=== PATIENT | male | born 1975 | race Caucasian/White ===

== ENCOUNTER 2020-05-03 00:06 | Emergency (ER) | payer SELFPAY ==
[~2020-05-03] VITALS: Ht 185.4 cm; Wt 172.7 kg
[2020-05-03 01:26] VITALS: BP 174/100
[2020-05-03] MEDS ORDERED: HYDROcodone/APAP 10/325 1 TAB TABLET PO ONE (02:00)
[2020-05-03] MEDS ORDERED: HYDR-3164 PO (02:11)
--- NOTE | 2020-05-03 02:12 | PHYS DOC ---
Past Medical History Past Medical History: DVT, Hypertension Additional Past Medical Histor: PE Past Surgical History: Other Additional Past Surgical Histo: R. MCL, R. BICEP, R. ANKLE Smoking Status: Current Every Day Smoker Alcohol Use: Rarely General Adult EDM: Chief Complaint: LOWER EXTREMITY SWELLING HPI: HPI: Patient is a 44 year old male with a past medical history of DVTs and PEs presents with a chief complaint of right inner leg pain. Patient states yesterday started to have some swelling and pain right inner thigh. Patient sta jessica since onset pain and swelling have increased. Patient is concerned that he might have a DVT. Patient denies any chest pain or shortness of breath. Review of Systems: Review of Systems: Constitutional: Denies fever or chills. [] Eyes: Denies change in visual acuity. [] HENT: Denies nasal congestion or sore throat. [] Respiratory: Denies cough or shortness of breath. [] Cardiovascular: Denies chest pain or edema. [] GI: Denies abdominal pain, nausea, vomiting, bloody stools or diarrhea. [] : Denies dysuria. [] Musculoskeletal: Denies back pain or joint pain. [Positive extremity pain] Integument: Denies rash. [] Neurologic: Denies headache, focal weakness or sensory changes. [] Endocrine: Denies polyuria or polydipsia. [] Lymphatic: Denies swollen glands. [] Psychiatric: Denies depression or anxiety. [] Heart Score: Risk Factors: Risk Factors: DM, Current or recent (<one month) smoker, HTN, HLP, family history of CAD, obesity. Risk Scores: Score 0 - 3: 2.5% MACE over next 6 weeks - Discharge Home Score 4 - 6: 20.3% MACE over next 6 weeks - Admit for Clinical Observation Score 7 - 10: 72.7% MACE over next 6 weeks - Early Invasive Strategies Current Medications: Current Medications Medications (Trade) Dose Ordered Sig/Yovani Start Time Stop Time Status Last Admin Dose Admin Acetaminophen/ Hydrocodone Bitart (Lortab 10/325) 1 tab 1X ONCE 05/03/20 02:00 05/03/20 02:01 DC 05/03/20 01:42 1 TAB Allergies: Allergies: Allergies Coded Allergies Type Severity Reaction Last Updated Verified aspirin Allergy Intermediate 05/03/20 Yes prochlorperazine Allergy Intermediate 05/03/20 Yes Physical Exam: PE: Constitutional: Well developed, well nourished, no acute distress, non-toxic appearance. [] HENT: Normocephalic, atraumatic, bilateral external ears normal, oropharynx moist, no oral exudates, nose normal. [] Eyes: PERRLA, EOMI, conjunctiva normal, no discharge. [] Neck: Normal range of motion, no tenderness, supple, no stridor. [] Cardiovascular:Heart rate regular rhythm, no murmur [] Lungs & Thorax: Bilateral breath sounds clear to auscultation [] Abdomen: Bowel sounds normal, soft, no tenderness, no masses, no pulsatile masses. [] Skin: Warm, dry, no erythema, no rash. [] Back: No tenderness, no CVA tenderness. [] Extremities: No tenderness, no cyanosis, no clubbing, ROM intact, no edema. [] Neurologic: Alert and oriented X 3, normal motor function, normal sensory fun ction, no focal deficits noted. [] Psychologic: Affect normal, judgement normal, mood normal. [] Current Patient Data: Vital Signs: Vital Signs Date Time Temp Pulse Resp B/P (MAP) Pulse Ox O2 Delivery O2 Flow Rate FiO2 05/03/20 01:42 20 05/03/20 01:26 98.1 98 174/100 (124) 98 Room Air 98.1 EKG: EKG: [] Radiology/Procedures: Radiology/Procedures: [] Impression: IMPRESSION: No evidence of right lower extremity DVT. Distal femoral vein not visualized. Occlusive superficial venous thrombus in the greater saphenous vein at the level of the thigh. Course & Med Decision Making: Course & Med Decision Making Pertinent Labs and Imaging studies reviewed. (See chart for details) [] Patient was evaluated for chief complaint. Work-up consisted of radiologic imaging. Ultrasound performed no DVT. Patient was discharged home with prescription Percocet and Keflex Dragon Disclaimer: Dragon Disclaimer: This electronic medical record was generated, in whole or in part, using a voice recognition dictation system. Departure Departure Impression: Primary Impression: Superficial thrombophlebitis Disposition: 01 DC HOME SELF CARE/HOMELESS Condition: STABLE Referrals: NO PCP (PCP) Patient Instructions: Venous Thromboembolism Scripts Oxycodone HCl/Acetaminophen (Percocet 5-325 mg Tablet) 1 Each Tablet 1 TAB PO QIDPRN PRN for PAIN MDD 4 Tablet(s) for 5 Days, #20 TAB 0 Refills Prov: CHRISTOPHER TINSLEY DO 05/03/20 Cephalexin (KEFLEX) 500 Mg Capsule 500 MG PO QID, #40 CAP Prov: CHRISTOPHER TINSLEY DO 05/03/20 Hydrocodone/Apap 5-325 (NORCO 5-325 TABLET) 1 Each Tablet 1 TAB PO PRN Q6HRS PRN for PAIN, #20 TAB 0 Refills Prov: CHRISTOPHER TINSLEY DO 05/03/20 CHRISTOPHER TINSLEY DO May 03, 2020 02:11
[2020-05-03] MEDS ORDERED: CEPH-264 PO (02:16)
[2020-05-03] MEDS ORDERED: OXYC-325 PO (02:16)
--- NOTE | 2020-05-03 02:24 | RAD ---
EXAMINATION: VENOUS LOWER EXTREMITY RIGHT (LOWER EXTREMITY VENOUS ULTRASOUND) CLINICAL HISTORY: Right LEG SWELLING, HX OF DVT TECHNIQUE: Sonographic grayscale images obtained of the right lower extremity deep venous system with color flow Doppler, compression, and augmentation techniques as indicated. Images obtained and stored in a permanent archive. COMPARISON: None FINDINGS: No evidence of absent flow or incompressibility within the common femoral vein, proximal to mid femoral vein, or popliteal vein. Distal femoral vein not visualized secondary to limited beam penetration related to patient's body habitus. Visualized calf veins appear patent on limited evaluation. Echogenic occlusive thrombus in the greater saphenous vein extending from just distal to the junction with the common femoral vein to the level of the distal thigh. IMPRESSION: No evidence of right lower extremity DVT. Distal femoral vein not visualized. Occlusive superficial venous thrombus in the greater saphenous vein at the level of the thigh. Electronically signed by: Tevin Hoyt DO (05/03/2020 2:21 AM) YNES
== END 2020-05-03 02:21 | disposition home or self-care (01) ==
LOC: ER 00:06
DX: I80.9 Phlebitis and thrombophlebitis of unspecified site (principal); M79.661 Pain in right lower leg; R60.0 Localized edema; I10 Essential (primary) hypertension; F17.200 Nicotine dependence, unspecified, uncomplicated; Z86.718 Personal history of other venous thrombosis and embolism; Z98.890 Other specified postprocedural states
CPT/HCPCS: 93971; 99284

== ENCOUNTER 2020-08-31 08:48 | Emergency (ER) | payer SELFPAY ==
[~2020-08-31] VITALS: Ht 185.4 cm; Wt 195.0 kg
[~2020-08-31 08:48] MED LIST: CEPH-264 PO; HYDR-3164 PO; OXYC-325 PO; RIVA10TA PO
[2020-08-31 09:45] LABS: BASO # 0.1 x10^3/uL (0.0-0.2); BASO % 1 % (0-3); EOS # 0.6 x10^3/uL (0.0-0.7); EOS % 7 % (0-3); HEMATOCRIT 43.6 % (39.0-53.0); HEMOGLOBIN 14.7 g/dL (13.0-17.5); LYMPH # 1.9 x10^3/uL (1.0-4.8); LYMPH % 20 % (24-48); MEAN CORPUSCULAR HEMOGLOBIN 29 pg (25-35); MEAN CORPUSCULAR HGB CONC 34 g/dL (31-37); MEAN CORPUSCULAR VOLUME 87 fL (79-100); MONO # 1.1 x10^3/uL (0.0-1.1); MONO % 12 % (0-9); NEUT # 5.7 x10^3/uL (1.8-7.7); NEUT % 60 % (31-73); PLATELET COUNT 194 x10^3/uL (140-400); RED BLOOD COUNT 5.02 x10^6/uL (4.30-5.70); WHITE BLOOD COUNT 9.4 x10^3/uL (4.0-11.0)
[2020-08-31 09:59] LABS: CALCIUM 9.1 mg/dL (8.5-10.1); CREATININE 0.8 mg/dL (0.7-1.3); GFR 104.1; POTASSIUM 4.4 mmol/L (3.5-5.1)
--- NOTE | 2020-08-31 10:00 | EKG ---
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
[2020-08-31 10:04] LABS: ALBUMIN/GLOBULIN RATIO 0.7 (1.0-1.7); MAGNESIUM 1.9 mg/dL (1.8-2.4); TOTAL BILIRUBIN 0.3 mg/dL (0.2-1.0); TOTAL PROTEIN 7.1 g/dL (6.4-8.2)
[2020-08-31] MEDS ORDERED: MORPHINE SULFATE 4 MG/ML VIAL. IV ONE ×3 (10:15→11:45)
--- NOTE | 2020-08-31 10:55 | RAD ---
Exam: US DPLX VENOUS EXTREMITY LOWER LT Indication: Reason: LEFT LEG SWELLING AND PAIN FOR 2 DAYS / Spl. Instructions: / History: Technique: Color-flow and pulsed wave duplex ultrasound with compression of venous structures of the left lower extremity. Comparison: None Available. Findings: Duplex ultrasound with compression of the deep venous structures of the left lower extremit y from the common femoral vein through the popliteal vein is negative for DVT. The posterior tibial a nd peroneal veins are segmentally visualized and patent where seen. Normal venous waveforms and augme ntation are noted throughout. Impression: No evidence for DVT in the left lower extremity. Electronically signed by: Reagan Delacruz MD (08/31/2020 10:53 AM) [id number]
[2020-08-31] MEDS ORDERED: ONDANSETRON PF 4 MG/2 ML VIAL. IVP ONE ×2 (11:15→11:30)
[2020-08-31] MEDS ORDERED: IOHEXOL 350 MG/ML 100 ML VIAL. IV ONE (11:15)
--- NOTE | 2020-08-31 12:07 | EKG ---
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
--- NOTE | 2020-08-31 12:20 | RAD ---
CTA CHEST INDICATION: chest pain, soa, hx of PE . Comparison: CTA 05/07/2020. TECHNIQUE: Following the uneventful administration of intravenous contrast, 100 cc Omnipaque 350, axi al CT sections were obtained through the lungs and upper abdomen. Multiplanar reconstructions and MIP images were obtained. PQRS compliance statement: One or more of the following individualized dose reduction techniques were utilized for this examinat ion: 1. Automated exposure control 2. Adjustment of the mA and/or kV according to patient size 3. Use of iterative reconstruction technique FINDINGS: Pulmonary arteries: No large central pulmonary thromboembolus. Evaluation of segmental and subsegment al branches is nondiagnostic due to suboptimal contrast opacification. Lungs and Airways: No pulmonary mass or consolidation. Right lower lobe calcified granulomas. No abno rmality of the central airways. Pleura: The pleural spaces are normal. Heart and Mediastinum: The visualized thyroid is normal in size and attenuation. No axillary or supra clavicular lymphadenopathy. No mediastinal, hilar or retrocrural lymphadenopathy. Calcified mediastin al and right hilar lymph nodes consistent with remote granulomatous disease. The heart and pericardiu m are within normal limits. Normal caliber thoracic aorta. Abdomen: Limited images through the upper abdomen show no abnormality of the visualized organs. Bones and Soft Tissues: Degenerative changes of the spine with multilevel bridging osteophytes. IMPRESSION: 1. No large central pulmonary thromboembolus. Evaluation of segmental and subsegmental branches is no ndiagnostic due to suboptimal contrast opacification. 2. No pulmonary mass or consolidation. Electronically signed by: Reagan Delacruz MD (08/31/2020 12:18 PM) [id number]
[2020-08-31 12:25] VITALS: BP 140/63
--- NOTE | 2020-08-31 12:53 | PHYS DOC ---
Past Medical History Past Medical History: DVT, Hypertension Additional Past Medical Histor: PE Past Surgical History: Other Additional Past Surgical Histo: R. MCL, R. BICEP, R. ANKLE Smoking Status: Current Every Day Smoker Alcohol Use: Rarely General Adult EDM: Chief Complaint: SHORTNESS OF BREATH HPI: HPI: Patient is a 45 year old male who present to ER due to left leg pain, chest pain associate with trouble breathing for the last few days. 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 Patient was on Xarelto, but no longer on blood thinner. Patient denies any history of diabetic, no history of high blood pressure, no history of coronary disease. Patient denies any recent travel or operation, he denies any recent COVID-19 infection or exposure. Review of Systems: Review of Systems: Constitutional: Denies fever or chills. [] Eyes: Denies change in visual acuity. [] HENT: Denies nasal congestion or sore throat. [] Respiratory: Denies cough, positive for shortness of breath. [] Cardiovascular: Positive for chest pain, GI: Denies abdominal pain, nausea, vomiting, bloody stools or diarrhea. [] : Denies dysuria. [] Musculoskeletal: Positive for left leg pain] Integument: Denies rash. [] Neurologic: Denies headache, focal weakness or sensory changes. [] Endocrine: Denies polyuria or polydipsia. [] Lymphatic: Denies swollen glands. [] Psychiatric: Denies depression or anxiety. [] Heart Score: C/O Chest Pain: Yes HEART Score for Chest Pain: HEART Score for Chest Pain Response (Comments) Value History Moderately Suspicious 1 ECG Normal 0 Age >45 - < 65 1 Risk Factors 1 or 2 Risk Factors 1 Troponin < Normal Limit 0 Total 3 Risk Factors: Risk Factors: DM, Current or recent (<one month) smoker, HTN, HLP, family history of CAD, obesity. Risk Scores: Score 0 - 3: 2.5% MACE over next 6 weeks - Discharge Home Score 4 - 6: 20.3% MACE over next 6 weeks - Admit for Clinical Observation Score 7 - 10: 72.7% MACE over next 6 weeks - Early Invasive Strategies Current Medications: Current Medications Medications (Trade) Dose Ordered Sig/Yovani Start Time Stop Time Status Last Admin Dose Admin Iohexol (Omnipaque 350 Mg/ml) 100 ml 1X ONCE 08/31/20 11:15 08/31/20 11:16 DC 08/31/20 12:00 100 ML Morphine Sulfate (Morphine Sulfate) 4 mg 1X ONCE 08/31/20 11:45 08/31/20 11:46 DC 08/31/20 11:46 4 MG Ondansetron HCl (Zofran) 8 mg 1X ONCE 08/31/20 11:30 08/31/20 11:31 DC 08/31/20 11:46 8 MG Allergies: Allergies: Allergies Coded Allergies Type Severity Reaction Last Updated Verified prochlorperazine Allergy Intermediate 05/03/20 Yes aspirin Adverse Reaction Intermediate Palpitations 05/05/20 Yes sulfamethoxazole Adverse Reaction Unknown Nausea and Vomiting 05/05/20 Yes trimethoprim Adverse Reaction Unknown Nausea and Vomiting 05/05/20 Yes Physical Exam: PE: Constitutional: Well developed, well nourished, no acute distress, non-toxic appearance. Obese HENT: Normocephalic, atraumatic, bilateral external ears normal, oropharynx moist, no oral exudates, nose normal. [] Eyes: PERRLA, EOMI, conjunctiva normal, no discharge. [] Neck: Normal range of motion, no tenderness, supple, no stridor. [] Cardiovascular:Heart rate regular rhythm, no murmur [] Lungs & Thorax: Bilateral breath sounds clear to auscultation [] Abdomen: Bowel sounds normal, soft, no tenderness, no masses, no pulsatile mass es. [] Skin: Warm, dry, no erythema, no rash. [] Back: No tenderness, no CVA tenderness. [] Extremities: Left calf is tender to palpation, there is no obvious swelling, no redness, no evidence of infection. Neurologic: Alert and oriented X 3, normal motor function, normal sensory function, no focal deficits noted. [] Psychologic: Affect normal, judgement normal, mood normal. [] Current Patient Data: Labs: Laboratory Tests Test 08/31/20 09:30 White Blood Count 9.4 x10^3/uL (4.0-11.0) Red Blood Count 5.02 x10^6/uL (4.30-5.70) Hemoglobin 14.7 g/dL (13.0-17.5) Hematocrit 43.6 % (39.0-53.0) Mean Corpuscular Volume 87 fL (79-100) Mean Corpuscular Hemoglobin 29 pg (25-35) Mean Corpuscular Hemoglobin Concent 34 g/dL (31-37) Red Cell Distribution Width 15.0 % (11.5-14.5) H Platelet Count 194 x10^3/uL (140-400) Neutrophils (%) (Auto) 60 % (31-73) Lymphocytes (%) (Auto) 20 % (24-48) L Monocytes (%) (Auto) 12 % (0-9) H Eosinophils (%) (Auto) 7 % (0-3) H Basophils (%) (Auto) 1 % (0-3) Neutrophils # (Auto) 5.7 x10^3/uL (1.8-7.7) Lymphocytes # (Auto) 1.9 x10^3/uL (1.0-4.8) Monocytes # (Auto) 1.1 x10^3/uL (0.0-1.1) Eosinophils # (Auto) 0.6 x10^3/uL (0.0-0.7) Basophils # (Auto) 0.1 x10^3/uL (0.0-0.2) Sodium Level 138 mmol/L (136-145) Potassium Level 4.4 mmol/L (3.5-5.1) Chloride Level 105 mmol/L (98-107) Carbon Dioxide Level 27 mmol/L (21-32) Anion Gap 6 (6-14) Blood Urea Nitrogen 10 mg/dL (8-26) Creatinine 0.8 mg/dL (0.7-1.3) Estimated GFR (Cockcroft-Gault) 104.1 BUN/Creatinine Ratio 13 (6-20) Glucose Level 111 mg/dL (70-99) H Calcium Level 9.1 mg/dL (8.5-10.1) Magnesium Level 1.9 mg/dL (1.8-2.4) Total Bilirubin 0.3 mg/dL (0.2-1.0) Aspartate Amino Transferase (AST) 18 U/L (15-37) Alanine Aminotransferase (ALT) 35 U/L (16-63) Alkaline Phosphatase 64 U/L (46-116) Troponin I Quantitative < 0.017 ng/mL (0.000-0.055) VO-Kie-S-Type Natriuretic Peptide 192 pg/mL (0-124) H Total Protein 7.1 g/dL (6.4-8.2) Albumin 3.0 g/dL (3.4-5.0) L Albumin/Globulin Ratio 0.7 (1.0-1.7) L Lipase 115 U/L (73-393) Laboratory Tests 08/31/20 09:30 Laboratory Tests 08/31/20 09:30 Vital Signs: Vital Signs Date Time Temp Pulse Resp B/P (MAP) Pulse Ox O2 Delivery O2 Flow Rate FiO2 08/31/20 09:30 98.1 75 18 99 Room Air 98.1 EKG: EKG: EKG was done at 11:00, heart rate of 67 beats per minutes, normal sinus rhythm, no ST segment elevation. Normal axis. Radiology/Procedures: Radiology/Procedures: [[address] [address] IMAGING REPORT Signed PATIENT: CYNTHIA LYONS ACCOUNT: [id number] : 1975 LOCATION: ER AGE: 45 SEX: M EXAM STATUS: REG ER ORD. PHYSICIAN: MAYELA RUFF DO REASON: LEFT LEG SWELLING AND PAIN FOR 2 DAYS PROCEDURE: VENOUS LOWER EXTREMITY LEFT Exam: US DPLX VENOUS EXTREMITY LOWER LT Indication: Reason: LEFT LEG SWELLING AND PAIN FOR 2 DAYS / Spl. Instructions: / History: Technique: Color-flow and pulsed wave duplex ultrasound with compression of venous structures of the left lower extremity. Comparison: None Available. Findings: Duplex ultrasound with compression of the deep venous structures of the left lower extremity from the common femoral vein through the popliteal vein is negative for DVT. The posterior tibial and peroneal veins are segmentally visualized and patent where seen. Normal venous waveforms and augmentation are noted throughout. Impression: No evidence for DVT in the left lower extremity. Electronically signed by: Pablo Brooke MD (08/31/2020 10:53 AM) [id number] DICTATED and SIGNED BY: PABLO BROOKE MD DATE: 08/31/20 [id number] [address] [address] IMAGING REPORT Signed PATIENT: CYNTHIA LYONS ACCOUNT: [id number] : 1975 LOCATION: ER AGE: 45 SEX: M EXAM STATUS: REG ER ORD. PHYSICIAN: MAYELA RUFF DO REASON: chest pain, soa, hx of PE PROCEDURE: CT ANGIOGRAPHY CHEST CTA CHEST INDICATION: chest pain, soa, hx of PE . Comparison: CTA 05/07/2020. TECHNIQUE: Following the uneventful administration of intravenous contrast, 100 cc Omnipaque 350, axial CT sections were obtained through the lungs and upper abdomen. Multiplanar reconstructions and MIP images were obtained. PQRS compliance statement: One or more of the following individualized dose reduction techniques were utilized for this examination: 1. Automated exposure control 2. Adjustment of the mA and/or kV according to patient size 3. Use of iterative reconstruction technique FINDINGS: Pulmonary arteries: No large central pulmonary thromboembolus. Evaluation of segmental and subsegmental branches is nondiagnostic due to suboptimal contrast opacification. Lungs and Airways: No pulmonary mass or consolidation. Right lower lobe calcified granulomas. No abnormality of the central airways. Pleura: The pleural spaces are normal. Heart and Mediastinum: The visualized thyroid is normal in size and attenuation. No axillary or supraclavicular lymphadenopathy. No mediastinal, hilar or retrocrural lymphadenopathy. Calcified mediastinal and right hilar lymph nodes consistent with remote granulomatous disease. The heart and pericardium are within normal limits. Normal caliber thoracic aorta. Abdomen: Limited images through the upper abdomen show no abnormality of the visualized organs. Bones and Soft Tissues: Degenerative changes of the spine with multilevel bridging osteophytes. IMPRESSION: 1. No large central pulmonary thromboembolus. Evaluation of segmental and subsegmental branches is nondiagnostic due to suboptimal contrast opacification. 2. No pulmonary mass or consolidation. Electronically signed by: Pablo Brooke MD (08/31/2020 12:18 PM) [id number] DICTATED and SIGNED BY: PABLO BROOKE MD DATE: 08/31/20 [id number] Course & Med Decision Making: Course & Med Decision Making Pertinent Labs and Imaging studies reviewed. (See chart for details) Patient is a 45-year-old male who presented to ER due to left leg pain, chest pain and trouble breathing for several days. 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 Doppler today did not show evidence of DVT, CTA chest did not show evidence of blood clot disorder or infection. EKG came back normal, his lab work did not show any elevated troponin. Due to his risk factor patient would recommend to be admitted to hospital for further evaluation and treatment, however patient declined admission, he signed out against medical advice. Arthur Disclaimer: Arthur Disclaimer: This electronic medical record was generated, in whole or in part, using a voice recognition dictation system. Departure Departure Impression: Primary Impression: Chest pain Additional Impression: Dyspnea Disposition: 07 AMA/ELOPED/LWBS Condition: STABLE Referrals: NO PCP (PCP) Patient Instructions: Discharge Against Medical Advice MAYELA RUFF DO Aug 31, 2020 12:53
[2020-09-01] MEDS ORDERED: ACET325T9 PO (05:25)
[2020-09-01] MEDS ORDERED: IBUP-1007 PO (05:25)
[2020-09-01] MEDS ORDERED: ASPI-424 PO (05:25)
== END 2020-08-31 13:03 | disposition left against medical advice (07) ==
LOC: ER 08:48
DX: R07.89 Other chest pain (principal); R06.00 Dyspnea, unspecified; M79.605 Pain in left leg; I10 Essential (primary) hypertension; F17.200 Nicotine dependence, unspecified, uncomplicated; Z98.890 Other specified postprocedural states; Z86.718 Personal history of other venous thrombosis and embolism; Z88.2 Allergy status to sulfonamides; Z88.8 Allergy status to other drugs, medicaments and biological substances
CPT/HCPCS: 36415; 71275; 80053; 83690; 83735; 83880; 84484; 85025; 93005; 93971; 96374; 96375; 96376; 99285; J2270; J2405; Q9967

== ENCOUNTER 2021-08-23 20:22 | Emergency (ER) | payer SELFPAY ==
[~2021-08-23] VITALS: Ht 185.4 cm; Wt 200.3 kg
[~2021-08-23 20:22] MED LIST changes: +ACET325T9 PO; +ASPI-424 PO; +IBUP-1007 PO; +OXYC1TAB22 PO
[2021-08-23 20:31] VITALS: BP 180/118
[2021-08-23] MEDS ORDERED: DIPHTH,PERTUSS(ACELL),TET TOX 0.5 ML DISP.SYRIN. VAX IM ONE (21:00)
[2021-08-23] MEDS ORDERED: AMOXICILLIN/K CLAV 875/125MG TABLET. PO ONE (21:15)
[2021-08-23] MEDS ORDERED: AMOX875T PO (21:17)
[2021-08-23] MEDS ORDERED: TRAM50TA PO (21:17)
--- NOTE | 2021-08-23 21:18 | PHYS DOC ---
Past Medical History Past Medical History: Anxiety, Depression, Hypertension Additional Past Medical Histor: PE Past Surgical History: Other Additional Past Surgical Histo: L MCL 06/2020, R MCL, R ankle, R bicep Smoking Status: Current Every Day Smoker Alcohol Use: Rarely General Adult EDM: Chief Complaint: ANIMAL BITE HPI: HPI: Patient is a 46 year old male who presents to the ED today complaining of dog bites to the right calf, patient got bit by a neighborhood dog today. Unknown vaccine status of the dog but the dog has been quarantined by animal control Review of Systems: Review of Systems: Constitutional: Denies fever or chills. [] Musculoskeletal: Denies back pain or joint pain. [] Integument: Reports right calf dog bites Neurologic: Denies headache, focal weakness or sensory changes. [] Psychiatric: Denies depression or anxiety. [] Heart Score: C/O Chest Pain: N/A Risk Factors: Risk Factors: DM, Current or recent (<one month) smoker, HTN, HLP, family history of CAD, obesity. Risk Scores: Score 0 - 3: 2.5% MACE over next 6 weeks - Discharge Home Score 4 - 6: 20.3% MACE over next 6 weeks - Admit for Clinical Observation Score 7 - 10: 72.7% MACE over next 6 weeks - Early Invasive Strategies Current Medications: Current Medications Medications (Trade) Dose Ordered Sig/Yovani Start Time Stop Time Status Last Admin Dose Admin Amoxicillin/ Clavulanate Potassium (Augmentin 875/ 125mg) 1 tab 1X ONCE 08/23/21 21:15 08/23/21 21:16 Diphtheria/ Tetanus/Acell Pertussis (Boostrix) 0.5 ml ONCE ONCE 08/23/21 21:00 08/23/21 21:01 DC Allergies: Allergies: Allergies Coded Allergies Type Severity Reaction Last Updated Verified prochlorperazine Allergy Intermediate 05/03/20 Yes aspirin Adverse Reaction Intermediate Palpitations 05/05/20 Yes sulfamethoxazole Adverse Reaction Mild Nausea and Vomiting 09/01/20 Yes trimethoprim Adverse Reaction Mild Nausea and Vomiting 09/01/20 Yes Physical Exam: PE: Constitutional: Well developed, well nourished, no acute distress, non-toxic appearance. [] Skin: 2 tiny puncture wounds noted on the right calf consistent with a dog bite. No signs of infection, no drainage. Back: No tenderness, no CVA tenderness. [] Extremities: No tenderness, no cyanosis, no clubbing, ROM intact, no edema. [] Neurologic: Alert and oriented X 3, normal motor function, normal sensory funct ion, no focal deficits noted. [] Psychologic: Affect normal, judgement normal, mood normal. [] Current Patient Data: Vital Signs: Vital Signs Date Time Temp Pulse Resp B/P (MAP) Pulse Ox O2 Delivery O2 Flow Rate FiO2 08/23/21 20:31 98.7 94 18 180/118 (138) 96 Room Air 98.7 EKG: EKG: [] Radiology/Procedures: Radiology/Procedures: [] Course & Med Decision Making: Course & Med Decision Making Pertinent Labs and Imaging studies reviewed. (See chart for details) This a 46-year-old male patient presenting to the ED today with dog bites to the right calf. Tetanus updated. Discharge on Augmentin. Wound care instructions and return precautions provided. Tetanus updated Arthur Disclaimer: Arthur Disclaimer: This electronic medical record was generated, in whole or in part, using a voice recognition dictation system. Departure Departure Impression: Primary Impression: Dog bite of right calf Qualified Codes: S81.851A - Open bite, right lower leg, initial encounter; W54.0XXA - Bitten by dog, initial encounter Disposition: 01 HOME / SELF CARE / HOMELESS Condition: STABLE Referrals: NO PCP (PCP) Follow-up with your doctor in 1 to 2 weeks Patient Instructions: Animal Bite, [id number] Additional Instructions: Please wash your dog bites with regular soap and water twice a day for 10 days. Apply Neosporin to the areas twice a day for 10 days. Take the prescribed an tibiotics until completed. Come back to the ED at any point symptoms worsen Scripts Tramadol Hcl (TRAMADOL HCL) 50 Mg Tablet 50 MG PO Q6HRS PRN for PAIN, #20 TAB Prov: HOLLIE BUTTS BALLISTICS TESTER 08/23/21 Amoxicillin (AMOXICILLIN) 875 Mg Tablet 1 TAB PO BID, #20 TAB Prov: HOLLIE BUTTS BALLISTICS TESTER 08/23/21 HOLLIE BUTTS APRN Aug 23, 2021 21:18
== END 2021-08-23 21:30 | disposition home or self-care (01) ==
LOC: ER 20:22
DX: S81.851A Open bite, right lower leg, initial encounter (principal); I10 Essential (primary) hypertension; F17.200 Nicotine dependence, unspecified, uncomplicated; W54.0XXA Bitten by dog, initial encounter; Y93.89 Activity, other specified; Y92.89 Other specified places as the place of occurrence of the external cause; Y99.8 Other external cause status
CPT/HCPCS: 90471; 90715; 99283-25